=== PATIENT | male | born 1925 | race Caucasian/White ===

== ENCOUNTER 2017-04-28 23:55 | Inpatient (IN) | payer OTHER ==
[~2017-04-28] VITALS: Ht 182.9 cm; Wt 82.6 kg
--- NOTE | 2017-04-28 23:59 | ED AMS/SEIZURE/WEAK/DIZZY ---
History of Present Illness General Chief Complaint: General Adult Stated Complaint: INCREASED LETHRAGY AND DIARRHEA Source: family, old records Exam Limitations: clinical condition Vital Signs & Intake/Output Vital Signs & Intake/Output Vital Signs Date Time Temp Pulse Resp B/P B/P Pulse O2 O2 Flow FiO2 Mean Ox Delivery Rate 04/29 0432 97.4 76 20 110/80 100 Nasal 2.0L Cannula 04/29 0151 67 20 125/88 100 Nasal 2.0L Cannula 04/29 0055 96 Nasal 2.0L Cannula 04/29 0038 68 16 120/82 97 Room Air 04/29 0005 97.5 64 20 94/53 97 Room Air Allergies Coded Allergies: NO KNOWN ALLERGIES (04/29/17) Reconcile Medications No Known Home Medications Triage Nurses Notes Reviewed? yes Onset: Gradual Duration: day(s): Timing: recent history Injury Environment: home Severity: moderate HPI: 89 yo gentleman presents with weakness from home. Per his family, "He has been getting weak, not eating, not drinking. Tonight he coughed, and after that, he was not the same. He seemed sicker and was breathing harder." Past History Travel History Traveled to [place] past 21 day No Medical History Any Pertinent Medical History? none Surgical History Surgical History: none Family History Hx Contributory? No Sexual History Sexually Active No Review of Systems Review of Systems Constitutional: Reports: no symptoms. EENTM: Reports: no symptoms. Respiratory: Reports: no symptoms. Cardiovascular: Reports: no symptoms. GI: Reports: no symptoms. Genitourinary: Reports: no symptoms. Musculoskeletal: Reports: no symptoms. Skin: Reports: no symptoms. Neurological/Psychological: Reports: no symptoms. Hematologic/Endocrine: Reports: no symptoms. Immunologic/Allergic: Reports: no symptoms. All Other Systems: Reviewed and Negative Physical Exam Physical Exam General Appearance: well developed/nourished, no apparent distress Head: atraumatic, normal appearance Eyes: Bilateral: normal appearance, PERRL, EOMI. Ears, Nose, Throat: normal ENT inspection, hearing grossly normal Respiratory: normal breath sounds, chest non-tender, no respiratory distress, quiet respiration, lungs clear Cardiovascular: gallop Gastrointestinal: normal bowel sounds, soft, non-tender, no organomegaly Back: normal inspection, normal range of motion, vertebral tenderness Extremities: evidence of injury Neurologic/Psych: confused, delerious Reflexes: 1+: bicep (R), bicep (L). Skin: intact, normal color, warm/dry, cyanosis Lymphatic: adenopathy, no anterior cervical citlali Core Measures ACS in differential dx? No CVA/TIA Diagnosis: No Severe Sepsis Present: No Septic Shock Present: No Progress Differential Diagnosis: alcohol intoxication, anemia, hypoglycemia, hypoxia, intracranial Hem., intracranial mass/tumor Plan of Care: Orders Procedure Date/time Status CBC WITHOUT DIFFERENTIAL 04/30 0830 Active Nothing by Mouth 04/29 B Active TROPONIN LEVEL 04/29 0830 Active LACTIC ACID 04/29 0830 Active HEPATIC FUNCTION PANEL 04/29 0830 Active BASIC ELECTROLYTES PLUS BUN&CR 04/29 0830 Active EKG 04/29 0830 Active LACTIC ACID 04/29 0630 Active AMMONIA 04/29 0353 Active Lab Add-on Test 04/29 0341 Active LACTIC ACID 04/29 0332 Complete Lab Add-on Test 04/29 0318 Active US-LIMITED ABDOMEN 04/29 0317 Active TRC EVALUATION (GEN) 04/29 0308 Active PT Evaluate & Treat 04/29 0308 Active Pathway - chart 04/29 0308 Active House Staff 04/29 0308 Active Patient Data 04/29 0216 Active BLOOD CULTURE 04/29 0150 Active Saline Lock 04/29 0149 Active Misc Message 04/29 0149 Active ED Holding Orders 04/29 0149 Active Admit to inpatient 04/29 0149 Active Vital Signs 04/29 0149 Active Code Status 04/29 0149 Active [place], Insertion/Removal/Asses 04/29 0146 Active CULTURE,URINE 04/29 0146 Active BLOOD CULTURE 04/29 0146 Active VIT D 25 HYDROXY 04/29 0033 Active THYROID STIMULATING HORMONE 04/29 0033 Active VITAMIN B12 04/29 0033 Active LACTIC ACID 04/29 0032 Complete Intake & Output 04/29 0000 Active SWALLOW EVALUATION 04/29 UNK Active VTE Mechanical Prophylaxis 04/29 UNK Active Patient Safety Monitor 04/29 UNK Active URINALYSIS 04/28 2358 Complete TROPONIN LEVEL 04/28 2358 Active LIPASE 04/28 2358 Active HEPATIC FUNCTION PANEL 04/28 2358 Active CBC WITHOUT DIFFERENTIAL 04/28 2358 Complete BASIC METABOLIC PANEL 04/28 2358 Active AMYLASE 04/28 2358 Active EKG 04/28 2358 Active Current Medications Sig/Jamee Start time Last Medication Dose Stop Time Status Admin Heparin Sodium 5,000 UNIT Q8 04/29 0600 UNVr (Porcine) Haloperidol 0.5 MG Q12P PRN 04/29 044 AC (Haldol) Potassium Chloride 10 MEQ Q1H 04/29 0445 AC 04/29 0546 Haloperidol 0.5 MG Q12P PRN 04/29 034 AC (Haldol) Potassium Chloride 40 MEQ ONCE ONE 04/29 034 CAN (K-Dur) 04/29 0346 Sodium Chloride 1,000 ML Q13H 04/29 034 AC 04/29 (Normal Saline 0.9%) 0354 Ampicillin Sodium/ 3,000 MG Q6 04/29 0330 UNVr 04/29 Sulbactam Sodium 0354 (Unasyn) Sodium Chloride 100 ML (Normal Saline 0.9%) Sodium Chloride 1,000 ML CONTINOUS INFUSION 04/29 031 CAN (Normal Saline 0.9%) 04/29 1634 Laboratory Tests 04/29/17 0336: Lactic Acid 8.5 H 04/29/17 0040: Urinalysis LIGHT H, Urine Color YEL, Urine Clarity HAZY H, Urine pH 6.0, Ur Specific [place] 1.025, Urine Protein 100 H, Urine Ketones NEG, Urine Nitrite NEG, Urine Bilirubin NEG@ICTO, Urine Urobilinogen 2.0 H, Ur Leukocyte Esterase NEG, Ur Microscopic SEDIMENT EXAMINED, Urine RBC 25-50 H, Urine WBC RARE, Ur Epithelial Cells FEW, Urine Bacteria RARE H, Hyaline Casts 1-3 H, Urine Mucus FEW, Urine Hemoglobin LARGE H, Urine Glucose NEG 04/29/17 0033: Lactic Acid 10.5 H 04/29/17 0033: Anion Gap 26 H, Estimated GFR 48 L, BUN/Creatinine Ratio 14.3, Glucose 154 H, Calcium 8.9, Total Bilirubin 2.7 H, Direct Bilirubin 1.5 H, AST 33, ALT 33, Alkaline Phosphatase 100, Troponin I 0.06, Total Protein 7.4, Albumin 4.0, Amylase 80, Lipase 45, Vitamin B12 365, 25-OH Vitamin D Total Pending, TSH 1.590 , CBC w Diff NO MAN DIFF REQ, RBC 5.54, MCV 86.2, MCH 28.4, RDW 15.0 H, MPV 9.2 , Gran % 84.6 H, Lymphocytes % 7.5 L, Monocytes % 6.3, Eosinophils % 1.5, Basophils % 0.1, Absolute Granulocytes 7.4 H, Absolute Lymphocytes 0.7 L, Absolute Monocytes 0.6, Absolute Eosinophils 0.1, Absolute Basophils 0, PUBS MCHC 33.0 Microbiology 04/29 0235 BLOOD: Blood Culture - RECD 04/29 0225 BLOOD: Blood Culture - RECD 04/29 0040 URINE ROUT: Urine Culture - RECD Diagnostic Imaging: Viewed by Me: Radiology Read. Discussed w/RAD: Radiology Read. CXR Impression: right basilar opacity, trace, with effusion Initial ED EKG: normal axis, normal intervals, normal p-waves, normal QRS complex, normal sinus rhythm Comments: PATIENT: MARIO CAMACHO PRESENT AGE: 89 PATIENT ACCOUNT NO: [id number] : [birth year] LOCATION: [facility] ORDERING PHYSICIAN: STONE WHEELER MD SERVICE DATE: 04/29/17 EXAM TYPE: RAD - XRY-PORTABLE CHEST XRAY EXAMINATION: XR PORTABLE CHEST CLINICAL INFORMATION: Dyspnea COMPARISON: None TECHNIQUE: Portable frontal view of the chest was obtained. FINDINGS: Right-sided pacemaker lead tips overlie the right atrium and right ventricle. Lung volumes are symmetric. There is minimal haziness at the right lung base. No additional consolidation bilaterally. No evidence of pneumothorax. Trace right pleural effusion cannot be excluded. No overt pulmonary edema. The cardiac silhouette is enlarged. There are degenerative changes in the bilateral shoulders. IMPRESSION: Minimal right basilar haziness and possible trace effusion. No overt edema. Enlarged cardiac silhouette. DICTATED BY: LEONARDO NICHOLAS MD DATE/TIME DICTATED:04/29/17108 [employer] BACK TENDER:ALLY DATE/TIME TRANSCRIBED:04/29/17108 CONFIDENTIAL, DO NOT COPY WITHOUT APPROPRIATE AUTHORIZATION. <Electronically signed in Other Vendor System> SIGNED BY: LEONARDO NICHOLAS MD 04/29/17 0114 Departure Departure Disposition: STILL A PATIENT Condition: Stable Clinical Impression Primary Impression: Sepsis Secondary Impressions: Acute renal failure, Lactic acidosis, Pneumonia Referrals: RAMAN SANABRIA,MICHAEL Mckeon (PCP/Family) Departure Forms: Customer Survey General Discharge Information Prescriptions: Current Visit Scripts No Known Home Medications Comments 04/29/17, 0:30. Discussed with son who is POA. Pt is dnr/dni. Admission Note Spoke With: CHELI SARAH MD Documentation of Exam: Documentation of any treatments & extenuating circumstances including Concerns Regarding Discharge (functional status, medication knowledge or non-compliance, living conditions, etc.) that warrant an admission rather than observation: pt in renal failure, with lactic acidosis, merits iv fluids. Pt also in sepsis... merits iv abx.
--- NOTE | 2017-04-29 00:05 | NUR ---
TRIAGE: DANIELE FROM HOME W/ FAMILY, FAMILY REPORTING SUDDEN ONSET DIARRHEA TONIGHT W/ INC AMS AND INC LETHARGY SINCE APPROX 8PM. PATIENT HX DEMENTIA W/ PACER TO RCW. PATIENT FAMILY REPORTS "NOT ACTING HIMSELF. IF HE IS DYING, WE WANT HIM TO PASS AT HOME." PATIENT IS ON NO HOME MEDICATIONS BASELINE. PER EMS, ON EMS ARRIVAL, HR:30-60 PACED W/ NO BILATERAL RADIAL PULSES AND BP: 70/40. PATIENT VSS ON ARRIVAL, BILATERAL RADIAL PULSES PRESENT THOUGH WEAK. PREHOSP FINGERSTICK:181. PREHOSP IV EST #18 LEFT FOREARM.
[2017-04-29 00:46] LABS: ABSOLUTE BASOPHIL COUNT 0 /CUMM (0.0-0.2); ABSOLUTE EOSINOPHIL COUNT 0.1 /CUMM (0.0-0.7); ABSOLUTE GRANULOCYTE CT 7.4 /CUMM (1.4-6.5); ABSOLUTE LYMPH COUNT 0.7 /CUMM (1.2-3.4); ABSOLUTE MONOCYTE COUNT 0.6 /CUMM (0.10-0.60); BASOPHIL % 0.1 % (0.0-2.0); EOSINOPHIL % 1.5 % (0-5); GRANULOCYTE % 84.6 % (42.2-75.2); HEMATOCRIT 47.7 % (42-52); MEAN CORPUSCULAR HGB 28.4 PG (27.0-31.0); MEAN CORPUSCULAR VOLUME 86.2 FL (80.0-94.0); MEAN PLATELET VOLUME 9.2 FL (7.4-10.4); PLATELET COUNT 152 /CUMM (130-400); RED BLOOD CELL CT 5.54 /CUMM (4.70-6.10); WHITE BLOOD CELL COUNT 8.8 /CUMM (4.8-10.8)
--- NOTE | 2017-04-29 00:52 | NUR ---
18G IV ESTABLISHED AND NS IVF RUNNING PER ORDER. BLOOD DRAWN AND SENT (BLUE, SST X2, LAV, HANSON, PINK). PREHOSP #18 TO LW INTACT. PT APPEARS LETHARGIC, ABLE TO FOLLOW SOME COMMANDS. AGITATED AND RESTLESS AT TIMES. OBTUNDED AND CATATONIC AT TIMES. ABLE TO REDIRECT BEHAVIOR WITH EMOTIONAL SUPPORT PROVIDED. PT CLEANED OF VERY SOFT BROWN STOOL, HUSSAIN CARE PROVIDED AND BARRIER CREAM APPLIED. COCCYX AREA REDDENED, BLANCHABLE. SKIN INTACT AT THIS TIME. PT WITH FREQUENT URGE TO VOID. 18FR CATH INSERTED WITH 100CC DARK KAYLA URINE OUTPUT. TRIO SENT TO LAB. SKIN APPEARS PALE WITH CRUSTED PAPILAR RASH TO ABDOMEN. FEET SWOLLEN BILATERALLY, TOES APPEAR PURPLE. UNABLE TO PALPATE PULSES. ELEVATED FOR COMFORT AND TO REDUCE SWELLING. PT IS PACED ON CM (RCW PACEMAKER/DEFIB) RATE 60'S WITH FREQUENT PVC'S. DENIES CP OR SOB. RESPIRATIONS SHALLOW, DEPRESSED RATE 10-14 AT REST, 18 WHEN INTERACTING WITH THIS RN. O2 SAT 97% BUT PLACED ON 2LNC SUPPLIMENTAL O2 WHILE AT REST. LIGHTS DIMMED FOR COMFORT. FAMILY AT BEDSIDE. PORTABLE CXR IN PROGRESS
--- NOTE | 2017-04-29 00:56 | NUR ---
CRITICAL TEST RESULTS [id number] MARIO CAMACHO 89 M TESTS AND RESULTS: LACTIC ACID 10.5 Results received and read back by: JANETH MARION Results received date and time: 04/29/17 0056 The following provider was notified of the results, and read the results back: Notified date and time: 04/29/17 at 0056
--- NOTE | 2017-04-29 01:14 | RADIOLOGY REPORT ---
EXAMINATION: XR PORTABLE CHEST CLINICAL INFORMATION: Dyspnea COMPARISON: None TECHNIQUE: Portable frontal view of the chest was obtained. FINDINGS: Right-sided pacemaker lead tips overlie the right atrium and right ventricle. Lung volumes are symmetric. There is minimal haziness at the right lung base. No additional consolidation bilaterally. No evidence of pneumothorax. Trace right pleural effusion cannot be excluded. No overt pulmonary edema. The cardiac silhouette is enlarged. There are degenerative changes in the bilateral shoulders. IMPRESSION: Minimal right basilar haziness and possible trace effusion. No overt edema. Enlarged cardiac silhouette.
--- NOTE | 2017-04-29 01:52 | NUR ---
PATIENT NOTED W/ JUNKY COUGH, FAMILY REPORTING TO RN, "HE'S GETTING NERVOUS WHEN HE COUGHS, ALMOST LIKE HE'S CHOKING." VSS. PATIENT REORIENTED TO KEEP NASAL CANNULA IN PLACE, FAMILY CONTINUES TO REORIENT PATIENT, PROVIDING EMOTIONAL SUPPORT. PATIENT TURNED AND REPOSITIONED FOR COMFORT.
--- NOTE | 2017-04-29 02:14 | NUR ---
BLOOD CULTURES IN PROGRESS.
--- NOTE | 2017-04-29 02:58 | History & Physical ---
KAIDEN SANABRIA,[facility] [place] 04/29/17 0257: General Information and HPI MD Statement: I have seen and personally examined MARIO CAMACHO and documented this H&P. The patient is a 89 year old M who presented with a patient stated chief complaint of altered mental status. Source of Information: family, old records Exam Limitations: unable to give history, patient's age, clinical condition, confusion, dementia History of Present Illness: Mr. Camacho is a 89 y/o M with PMHx of sick sinus syndrome s/p pacemaker, macular degeneration and dementia who presents with acute onset of altered mental status and respiratory distress. Patient is confused and unable to give any history. History is provided by patient's pdhoyfgw-im-sjt at bedside. Patient was in his usual state of health up until around 8 PM, approximately two hours after dinner , when he went into a coughing fit while sitting up in his chair. Following the episode, coughing persisted. According to patient's granddaughter it was almost as if patient was vomiting during these episodes. He was also noted to have labored breathing. Patient has dementia at baseline but following the episode he was much more confused than usual and did not even remember his own son. Patient 's bsfyhlls-ww-yig called EMS. While waiting for EMS, she noted that patient's pulse was barely palpable. He also had episodes during which he was almost apneic and appeared to stop breathing. Upon the arrival of EMS, patient was found to have heart rate in the 30-60s and blood pressure of 70/40. Bilateral radial pulses were not palpable. On arrival to the ED, vital signs were stable and bilateral radial pulses were present, although week. Patient was very high functioning up until 4-5 months ago. He was living alone, independent in his ADLs and iADLs and very involved in his community. Since 4-5 months ago, his mental and performance status has been gradually declining. This initially started as inability to recognize family members and later progressed such that patient stopped driving and required a walker to ambulate. Initially his rtuwwtam-yn-xbx was taking care of him but when he continued to decline further and became incontinent, they hired a 24-hour home health aide. Currently patient is able to feed himself, but otherwise dependent in all other ADLs and iADLs. He has also had some personality changes during this time and has become demanding and verbally abusive. According to patient's nrybyyvx-tk-bol, patient displays sundowning. Patient does not have any significant medical history other than pacemaker placement for sick sinus syndrome, macular degeneration and right index finger injury requiring amputation. He follows with his PCP Dr. Enrique Mena but does not take any medications. Allergies/Medications Allergies: Coded Allergies: NO KNOWN ALLERGIES (04/29/17) Home Med list No Known Home Medications Past History Travel History Traveled to [place] past 21 day No Medical History Neurological: dementia EENT: cataracts, macular degeneration Cardiovascular: sick sinus syndrome Respiratory: NONE Gastrointestinal: NONE Hepatic: NONE Renal: NONE Musculoskeletal: right index finger injury Psychiatric: NONE Endocrine: NONE Blood Disorders: NONE Cancer(s): NONE OPERATING ENGINEER APPRENTICE/Reproductive: NONE Surgical History Surgical History: right index finger amputation, bilateral eye phacoemulsification and lens implantation Past Family/Social History Psychosocial History Where do you live? Home Who Do You Live With? self Services at Home: Home Health Aide Primary Language: Telugu Functional Ability ADLs Independent: eating. Needs Assist: dressing, toileting, bathing. Ambulation: walker IADLs Needs Assist: shopping, housework, finances, food prep, telephone, transportation, medication admin. Employment History Employment Retired Profession/Employer [employer] Review of Systems Review of Systems Constitutional: Reports: no symptoms. EENTM: Reports: no symptoms. Cardiovascular: Reports: no symptoms. Respiratory: Reports: cough, short of breath. GI: Reports: no symptoms. Genitourinary: Reports: no symptoms. Musculoskeletal: Reports: no symptoms. Skin: Reports: no symptoms. Neurological/Psychological: Reports: confusion, dementia. Hematologic/Endocrine: Reports: no symptoms. Immunologic/Allergic: Reports: no symptoms. All Other Systems: Reviewed and Negative Exam & Diagnostic Data Last 24 Hrs of Vital Signs/I&O Vital Signs Date Time Temp Pulse Resp B/P B/P Pulse O2 O2 Flow FiO2 Mean Ox Delivery Rate 04/29 0151 67 20 125/88 100 Nasal 2.0L Cannula 04/29 0055 96 Nasal 2.0L Cannula 04/29 0038 68 16 120/82 97 Room Air 04/29 0005 97.5 64 20 94/53 97 Room Air Intake & Output 04/29 0800 04/29 0000 04/28 1600 Intake Total 1000 Output Total 100 Balance 900 Intake, IV 1000 Output, Urine 100 Patient 82.554 kg Weight Physical Exam General Appearance Alert, No Acute Distress, Awake, Confused, Folows Commands Skin No Rashes Skin Temp/Moisture Exam: Warm/Dry Sepsis Skin Exam (color): Jaundiced HEENT Atraumatic, Mucous Membr. moist/pink Neck Supple Cardiovascular Normal S1, Normal S2 Lungs Clear to Auscultation Abdomen Soft, No Tenderness, Positive Bowel Sounds Extremities Bilateral Lower Extremities with 2+ Pitting Edema Last 24 Hrs of Labs/[place]: Laboratory Tests 04/29/17 0336: Lactic Acid 8.5 H 04/29/17 0040: Urinalysis LIGHT H, Urine Color YEL, Urine Clarity HAZY H, Urine pH 6.0, Ur Specific [place] 1.025, Urine Protein 100 H, Urine Ketones NEG, Urine Nitrite NEG, Urine Bilirubin NEG@ICTO, Urine Urobilinogen 2.0 H, Ur Leukocyte Esterase NEG, Ur Microscopic SEDIMENT EXAMINED, Urine RBC 25-50 H, Urine WBC RARE, Ur Epithelial Cells FEW, Urine Bacteria RARE H, Hyaline Casts 1-3 H, Urine Mucus FEW, Urine Hemoglobin LARGE H, Urine Glucose NEG 04/29/17 0033: Lactic Acid 10.5 H 04/29/17 0033: Anion Gap 26 H, Estimated GFR 48 L, BUN/Creatinine Ratio 14.3, Glucose 154 H, Calcium 8.9, Total Bilirubin 2.7 H, Direct Bilirubin 1.5 H, AST 33, ALT 33, Alkaline Phosphatase 100, Troponin I 0.06, Total Protein 7.4, Albumin 4.0, Amylase 80, Lipase 45, Vitamin B12 Pending, 25-OH Vitamin D Total Pending, TSH Pending, CBC w Diff NO MAN DIFF REQ, RBC 5.54, MCV 86.2, MCH 28.4, RDW 15.0 H, MPV 9.2, Gran % 84.6 H, Lymphocytes % 7.5 L, Monocytes % 6.3, Eosinophils % 1.5, Basophils % 0.1, Absolute Granulocytes 7.4 H, Absolute Lymphocytes 0.7 L, Absolute Monocytes 0.6, Absolute Eosinophils 0.1, Absolute Basophils 0, PUBS MCHC 33.0 Microbiology 04/29 235 BLOOD: Blood Culture - RECD 04/29 225 BLOOD: Blood Culture - RECD 04/29 40 URINE ROUT: Urine Culture - RECD Diagnostic Data EKG Results Paced rhythm HR 71 QTc 450 CXR Results Minimal right basilar haziness and possible trace effusion. No overt edema. Enlarged cardiac silhouette. Assessment/Plan Assessment: Mr. Camacho is a 89 y/o M with PMHx of sick sinus syndrome s/p pacemaker, macular degeneration and dementia who presents with acute onset of altered mental status and respiratory distress. #Altered mental status: Underlying reason for patient's altered mental status is unclear with most likely etiologies including aspiration pneumonia given onset of symptoms of choking and respiratory distress, though patient is afebrile and without leukocytosis and CXR is without focal consolidation, and worsening of his progressive dementia, though this would present gradually as opposed to an acute sharp decline like the current presentation. Other etiologies that should be considered are hepatic encephalopathy given isolated hyperbilirubinemia suspicious of liver disease, vitamin B12 or vitamin D deficiency and hypothyroidism. S/p 1 dose of ceftriaxone and 1 L bolus of NS x2 in the ED. Currently satting well on 2 L NC. * Admit to General Medicine. * Start Unasyn 1.5 g IV Q6H. * Check BCx. * Keep patient NPO. * Swallow evaluation in the AM. * Check vitamin B12, vitamin D and TSH. * Check ammonia to rule out hepatic encephalopathy. * PT evaluation. * 1:1 sitter. * Haldol 0.5 mg IM BID PRN for agitation. #Lactic acidosis: Lactic acid markedly elevated to 10.5 on admission. Etiology is unclear but is most likely multifactorial including sepsis secondary to aspiration pneumonia and inability to clear lactic acid secondary to underlying suspected liver disease. * Trend lactic acid. * Continue IV hydration. #Hyperbilirubinemia: Mixed conjugated and unconjugated hyperbilirubinemia with total bilirubin of 2.7 and direct bilirubin of 1.5. Isolated hyperbilirubinemia with normal transaminases, alkaline phosphatase, amylase and lipase. Of unclear etiology. * Check RUQ US to rule out hepatic or biliary pathology. * Repeat LFTs in the AM. #Renal insufficiency: Creatinine 1.4 on admission. Unclear whether this represents APRIL or CKD since baseline creatinine is unknown but previous creatinine in 2012 had been normal. * Avoid nephrotoxic medications. * Monitor BMP in the AM. * Gentle hydration with NS @ 75 cc/hr. #Sick sinus syndrome: S/p pacemaker placement more than 10 years ago. Troponin on admission negative. EKG with paced rhythm and no ST-T wave changes. * Cardiology consult to be placed in the AM. Appreciate their recs. * Consider interrogating the pacemaker. * Repeat troponin and EKG. #Hypokalemia: K 3.3 on admission. * Administer KCl 10 mEq x2 as patient is too agitated to take PO. Diet: NPO DVT PPx: HSQ and ALPs CODE: DNR/DNI As Ranked By This Provider Problem List: 1. Altered mental status 2. Hyperbilirubinemia 3. Renal insufficiency 4. Aspiration pneumonia 5. Lactic acidosis 6. High anion gap metabolic acidosis 7. Sick sinus syndrome 8. Pacemaker Core Measures/Miscellaneous Acute Coronary Syndrome ACS Diagnosis: No Cerebrovascular Accident CVA/TIA Diagnosis: No Congestive Heart Failure CHF Diagnosis: No VTE (View Protocol) VTE Risk Factors: Acute medical illness, Age > 40, CHF or Resp failure No [facility] VTE prophylaxis d/t: No contraindications No VTE Pharm Prophylaxis d/t: No contraindications VTE Diagnosis: No VTE Type: NONE VTE Confirmed by (Test): NONE Sepsis (View Protocol) Severe Sepsis Present: No Septic Shock Septic Shock Present: No Miscellaneous Documentation Attending Case Discussed With: CHELI SARAH MD Primary Care Physician: RAMAN SANABRIA,ENRIQUE Mckeon Patient sees these Specialists Human Services Supervisor Sanjeev Tyler DPM Level of Patient Care: General Medicine LEONEL PENA 04/29/17 0345: Resident Review Statement Resident Statement: examined this patient, discussed with underwriting internship, agreed with underwriting internship, reviewed images, amended to note Other Findings: This is an 89 years old gentleman who has been fairly healthy not on any medication with past medical history of pacemaker placement more than 10 years ago reason for which is not known by the care provider probably done at [facility] or [facility]. Patient follows with only primary care physician Enrique Mena MD. He has history of dementia that has been getting worse in the past 3 months necessitating the family getting a maritime guard care provider. Patient was brought in by ambulance today after noting that starting from around 8 PM the patient he was coughing profusely followed by a period of transient unresponsiveness and almost no pulses as reported by the disk grinder who is the haojfpke-xx-wdd. There is also reports that using home BP machine the blood pressure systolic was about 70. Prior to this the patient was at his baseline has been eating and finishing his meals well without any problems. At the time of the coughing spells the patient was heaving did not cough and had a gurgling sound like blowing water from the lungs. Vitals on arrival showed afebrile 97.3 heart rate of 64 blood pressure 94/53 and improved with fluid resuscitation to systolic of 120, respiration of 20 and saturating 97% on room air Physical examination: Patient lying comfortably on the bed not in any acute distress can respond appropriately but appears lethargic and will not respond to orientation questions. Most of the history was narrated by the mgakunoc-yg-atl who lives in the same place with the patient. HEENT: No distended neck vessels dry mucous membranes Chest: Transmitted sounds bilaterally was appreciated Heart: Regular normal S1-S2 no murmurs Abdomen: No contour moving with respiration, no tenderness Extremities: Bilateral pitting edema +2 and no cyanosis or clubbing Assessment and plan 89 years old who has been fairly healthy not on any medication presenting with acute onset of coughing spell followed by a period of transient unresponsiveness and increased confusion. The patient has normal white count and no x-ray evidence of pneumonia. This patient might have aspirated given his dementia which has been progressing and hence the acute cough spell, given the acuteness of the aspiration the patient has not developed neurological changes. Aspiration pneumonia Lactic acidosis Acute kidney injury Hypokalemia Anionic gap acidosis Hyperbilirubinemia Dementia Admit the patient to general medicine floor Start the patient on IV Unasyn 3 g every 6 Total respiratory care with frequent suctioning Patient has received 2 L of normal saline continue with maintenance fluid to 75 mL per Repeat BEP a.m., continue to trend lactic acid One-to-one sitter and Haldol 0.5 mg twice a day when necessary for agitation Right upper quadrant ultrasound Continue to trend troponins and EKG every 8 hours Will admit to admission and blood samples ammonia level of B12 vitamin D and TSH Patient will benefit from teacher elementary school review and possible interrogation of the pacemaker PT evaluation Patient is nothing by mouth pending swallow evaluation CODE STATUS is DNI DNR Heparin for DVT prophylaxis KEARALUZ MARINABRI 04/29/17 0526: Attending MD Review Statement Attending Statement Attending MD Statement: examined this patient, discuss w/resident/PA/INSURANCE ADVISOR, agreed w/resident/PA/INSURANCE ADVISOR, discussed with family, reviewed EMR data (avail), reviewed images, amended to note Attending Assessment/Plan: CC: Sudden onset severe shortness of breath, altered mental status PMH: Cardiac arrhythmiapacemaker S/P pacemaker, dementia : Not on any medications Patient was brought in ER through EMS after an episode of severe coughing followed by almost apnea at home. History is provided by patient's daughter-in- law who suggests that she has been noticing decline in patient's mental condition since last 4-5 months, he being more forgetful, BMP are all changes, verbally aggressive, agitation. Previously oulvfzax-wp-xje was swollen care provider but then as his behavioral changes progressed they have 24 hour caregivers. According to caregiver patient had dinner around 6 PM and was on his recliner when he started to cough, cough was persistent and getting worse almost like dry heaves without vomiting. Caregiver called ehdqnyxg-db-zto and son, by that time patient was not recognizing them. Patient was very confused. Then his breathing was worse, almost stopped breathing. When caregiver tried to take blood pressure it was non-recordable, and ukcpemck-ax-hyo tried to take the pulse which she could not. When EMS arrived his heart rate was in 30s to 60s, blood pressure 70/40. When arriving in ER he had bilateral radial pulses, weak, fingerstick 181, blood pressure 98/53. Patient appears very agitated and delirious. Vitals: Afebrile, pulse in 60s, RR 20, blood pressure improved to 120/82, saturating well on 2 L nasal cannula. On examination: Not oriented, agitated, trying to get off the bed, trying to pull the Valdivia catheter, not cooperative, no acute distress, neck supple, JVD normal, mucosa dry, moving all extremities, with complete neurological examination could not be done, cranial nerves apparently intact, no dependent edema, no obvious skin rashes or inflammation CVS: S1-S2, RRR. RS: Coarse breathing sounds right worse than left, Abdomen: Soft, NT, ND, bowel sounds present. Labs: CBC unremarkable, potassium 3.3, bicarbonate 18, anion gap 26, BUN 20, creatinine 1.4, lactate 10.5, total bilirubin 2.7, direct bilirubin 1.5, AST 33, ALT 33, alkaline phosphatase 100, troponin 0.06 UA positive for protein, urobilinogen, RBC 50, rare bacteria CXR: Minimal right basilar haziness and possible trace effusion. No overt edema. Enlarged cardiac silhouette. EKG: Paced rhythm A and P 89-year-old male with past medical history significant for dementia with progressive decline over few months presented in ER for acute worsening of respiratory symptoms. Patient had persistent progressive cough at home followed by labored breathing and confusion. Patient was almost apneic for some time and had low blood pressure and pulse was not palpable. Upon arrival in ER is radial pulses were palpable but weak, blood pressure low normal side, improved with hydration. Patient appears severely agitated, no significant respiratory distress, saturating well on room air, coarse breathing sound on right side. BMP is significant for metabolic acidosis with high anion gap and lactic acidosis is 10.5. Patient may have had this changes secondary to hypoxia, hypotension happened at home. Patient also has elevated bilirubin of unclear etiology. Chest x-ray shows right-sided infiltrate, may have aspirated at home. Exact etiology of this acute decompensation is unclear probably choking, need to evaluate pacemaker as well. + Acute respiratory distress: Resolved + Aspiration pneumonia + Anion gap metabolic acidosis secondary to lactic acidosis + Elevated creatinine + Hyperbilirubinemia + Dementia with sundowning - Admit to general medicine floor - Continue gentle hydration - Replace potassium - Trend lactate - Blood cultures - IV Unasyn - Right upper quadrant ultrasound - When necessary Haldol if required - One-on-one sitter - Trend EKG troponin - Consult cardiology - ? Interrogation of pacemaker - Check B12 vitamin D and TSH - DVT prophylaxis with heparin - Try to discontinue Valdivia as soon as possible - Adequate pain control I had a detailed discussion with patient's prognosis and condition with patient' s wrtfvkdq-ff-kwe, if patient is not appropriately responding to current treatment or exact cause of acute deterioration not found, may consider palliative care. According to bbtbxbbz-pv-pog patient would not want to stay in hospital for long.
--- NOTE | 2017-04-29 03:38 | NUR ---
PATIENT CHANGED INTO HOSPITAL BED FROM ER STRETCHER, REPOSITIONED FOR COMFORT. PATIENT NOTED TO BE INCREASINGLY AGITATED, ATTEMPTING TO GET OUT OF BED. REORIENTED BY STAFF AND PATIENT'S FAMILY. PATIENT FAMILY REMAINS W/ PATIENT. PATIENT NOTED TO HAVE BEEN INCONTINENT OF SMALL AMOUNT LIQUID BM, CLEANED AND HUSSAIN CARE PROVIDED. RENEE REMAINS IN PLACE, APPROX 300ML DARK AKYLA URINE OUTPUT EMPTIED FROM DRAINAGE BAG. IV SITES COVERED W/ COBAND FOR PROTECTION. REPEAT LACTIC ACID OBTAINED AND SENT TO LAB. MD SARAH AT BEDSIDE.
--- NOTE | 2017-04-29 03:55 | NUR ---
UNASYN 3G INFUSING AT 200ML/HR PER EMAR. TOLERATING WELL. (LITER 2) NS BOLUS CONTINUES TO INFUSE W/O DIFFICULTY. (LITER 3) NS INFUSING AT 75ML/HR PER EMAR. TOLERATING WELL. PATIENT NOW SLEEPING, REGULAR RESPIRATIONS NOTED. FAMILY RESTING AT BEDSIDE IN RECLINER AT THIS TIME. LIGHTS IN ROOM DIMMED. REMAINS IN VIEW OF NURSES STATION.
--- NOTE | 2017-04-29 03:58 | NUR ---
CRITICAL TEST RESULTS [id number] MARIO CAMACHO 89 M TESTS AND RESULTS: LACTIC ACID 8.5 Results received and read back by: JANETH MARION Results received date and time: 04/29/17 0358 The following provider was notified of the results, and read the results back: HOUSE STAFF PAGED (BEEPER [id number]) Notified date and time: 04/29/17 at 0358
--- NOTE | 2017-04-29 03:59 | NUR ---
MD AWARE OF LACTIC ACID.
--- NOTE | 2017-04-29 04:16 | NUR ---
PATIENT NOW AWAKE, ATTEMPTING TO PULL OUT IV'S AND RENEE CATH. REORIENTED BY THIS RN AND FAMILY. NO SITTERS AVALIABLE TO SIT W/ PATIENT, ER MST SITTING W/ PATIENT AT THIS TIME. PATIENT IV SITES REMAIN COVERED FOR PROTECTION. PATIENT UNABLE TO SWALLOW PILLS PER FAMILY, PATIENT REFUSING TO TAKE PO K-DUR AND PO HALDOL (PER PRN ORDER FOR AGITATION). HOUSE STAFF PAGED.
--- NOTE | 2017-04-29 05:27 | Admission Certification ---
Admission Certification Certification Statement - As attending physician, I certify that at the time of - admission, based on clinical presentation, severity of - symptoms, need for further diagnostic testing and - therapeutic interventions, and risk of adverse outcomes - without in-hospital treatment, in my clinical assessment, - this patient requires an acute hospital stay for a minimum - of two nights or longer. I have also considered psychsocial - factors such as support system, advanced age, financial - issues, cognitive issues, and failed out-patient treatments, - past re-admission history, safety of patient, and lack of - compliance as applicable. Specific rationale supporting this admission is: Severe lactic acidosis, dementia with delirium
--- NOTE | 2017-04-29 06:03 | NUR ---
PATIENT NOTED TO BE ATTEMPTING TO GET OUT OF BED, AGITATED, INCREASINGLY MORE DIFFICULT TO CONSOLE AND VERBALLY DEESCALATE. PATIENT FAMILY REMAINS AT BEDSIDE W/ LIZZIE RN, MARY ESPITIA AND NINO DANIELS (MST SITTING W/ PATIENT). PATIENT NOTED TO HAVE REMOVED GOWN, ALL TELE LEADS AND NASAL CANNULA. PATIENT CHANGED INTO SCRUB TOP FOR COMFORT/ SAFETY. PATIENT IV SITES REMAIN COVERED. KCL 10MEQ INFUSING AT 100ML/HR PER EMAR. TOLERATING WELL. ALL IV TUBING COVERED FOR PATIENT SAFETY. UNABLE TO APPLY ALPS D/T PATIENT CONFUSION AND MULTIPLE ATEMPTS TO REMOVE. ATTEMPTS TO PLACE ALPS ON PATIENT MADE PATIENT INCREASINGLY AGITATED. PATIENT MEDICATED W/ SC HEPARIN PER EMAR. TOLERATED WELL. PATIENT MEDICATED W/ HALDOL IM PER EMAR. TOLERATED WELL.
--- NOTE | 2017-04-29 06:15 | NUR ---
PATIENT CONTINUES TO BE REORIENTED AND VERBALLY DEESCALATED BY NINO DANIELS AND FAMILY, PATIENT REORIENTED TO ER MULTIPLE TIMES. EMOTIONAL SUPPORT PROVIDED.
--- NOTE | 2017-04-29 06:23 | NUR ---
UNABLE TO OBTAIN AM BLOODWORK D/T PATIENT CURRENT AGITATION. LABS ORDERED FOR 0630 AND 0830 THIS AM. SPOKE W/ MD RICHEY (BEEPER 108), PER MD "WE CAN DRAW ALL OF THE LABS AT 0730 INSTEAD OF 0630 AND AGAIN AT 0830."
--- NOTE | 2017-04-29 06:54 | NUR ---
IPOC INITIATED AND UTD AT THIS TIME.
--- NOTE | 2017-04-29 07:02 | NUR ---
FIRST KCL 10MEQ COMPLETE. SECOND 10MEQ KCL INITIATED PER EMAR. TOLERATING WELL. SITTER REMAINS W/ PATIENT D/T CONFUSION AND CONTINUED ATTEMPTS TO AMBULATE OUT OF ED. FAMILY OFFERING EMOTIONAL SUPPORT AND REORIENTING PATIENT TO ER.
--- NOTE | 2017-04-29 07:04 | NUR ---
ALPS APPLIED AT THIS TIME D/T PATIENT COOPERATIVE W/ ALPS MONITOR. WILL CONTINUE TO MONITOR.
--- NOTE | 2017-04-29 08:00 | NUR ---
ASSUMED CARE OF PT AT THIS TIME WHO IS AWAKE AND CONFUSED AT THIS TIME, BASELINE PER FAMILY MEMBER WHO HAS BEEN AT BEDSIDE. PT CONTINUES TO PULL AT IV'S - COBAN REMOVED FROM LAC SITE AND SOCK PLACED OVER SITE WITH GOOD EFFECT AT THIS TIME. ALPS REMAINS IN PLACE. DAUGHTER AT BEDSIDE - VERY HELPFUL WITH CARE; PT TURNED AND REPOSITIONED. BED SHEETS CHANGED AND HUSSAIN CARE APPLIED. RENEE CONTINUES TO DRAIN DARK URINE, 300 ML EMPTIED. DAUGHTER STATES PT HAS BEEN AWAKE ALL NIGHT AND SHE WOULD LIKE TO ALLOW PT TO TRY TO REST. FLUIDS INFUSING PER MAR. US COMPLETED HOUSE STAFF AT BEDSIDE
--- NOTE | 2017-04-29 08:50 | NUR ---
CRITICAL TEST RESULTS [id number] MARIO CAMACHO 89 M TESTS AND RESULTS: LACTIC ACID 5.5 Results received and read back by: ZARIA RODAS Results received date and time: 04/29/17 0850 The following provider was notified of the results, and read the results back: HOUSE STAFF Notified date and time: 04/29/17 at 0850
--- NOTE | 2017-04-29 09:07 | NUR ---
PT ASSIGNED TO 224-01
--- NOTE | 2017-04-29 09:27 | NUR ---
PER KATHY LORENZO, UPGRADED TO TELE AT THIS TIME
[2017-04-29 09:31] VITALS: BP 128/88
--- NOTE | 2017-04-29 09:59 | ULTRASOUND REPORT ---
EXAMINATION: US ABDOMEN LIMITED CLINICAL INFORMATION: Isolated hyperbilirubinemia. No history of liver or gallbladder disease. Evaluate for liver/biliary tract process. COMPARISON: None TECHNIQUE: Real-time imaging of the right upper quadrant abdominal viscera. FINDINGS: PANCREAS: Incompletely visualized with the pancreatic head due to shadowing by overlying bowel gas. There is a hypoechoic 1.5 x 1.4 x 2.9 cm avascular thin-walled cystic mass in the pancreatic body. No wall thickening or papillary projections are noted. Remainder of the pancreas unremarkable. LIVER: Normal. The liver demonstrates normal size, contour and echogenicity. No focal lesion or intrahepatic biliary duct dilatation. GALLBLADDER: Multiple echogenic shadowing foci are seen layering within the gallbladder, consistent with gallstones. Diffuse gallbladder wall thickening is suggested along the medial margin, measuring up to 0.7 cm in diameter. The gallbladder is otherwise unremarkable. No gallbladder wall thickening or pericholecystic fluid. No sonographic Kahn's sign. COMMON BILE DUCT: Normal in caliber measuring 0.3 cm in diameter. RIGHT KIDNEY: Normal. No hydronephrosis. No renal calculi or focal parenchymal lesions. The kidney measures 11.0 cm in maximum dimension. FREE FLUID: None. IMPRESSION: 1. Large 1.5 x 1.4 x 2.9 cm thin-walled and avascular cystic mass in the pancreatic body. This may represent an incidental pancreatic cyst or pseudocyst. However, cystic neoplasm must be considered in the differential. Further assessment with MRI scan of the abdomen with and without contrast and MRCP is recommended. 2. Cholelithiasis with eccentric gallbladder wall thickening, suggesting inflammation. No sonographic Kahn's sign or pericholecystic fluid is seen to suggest acute component and findings may be long-standing. Close clinical correlation is requested. 3. Otherwise unremarkable right upper quadrant ultrasound.
--- NOTE | 2017-04-29 10:29 | NUR ---
SWALLOW EVAL IN PROGRESS
--- NOTE | 2017-04-29 10:45 | NUR ---
PER SPEECH THERAPY - PT IS NPO WITH ABSOUTELY NO EXCEPTIONS. KATHY PAGED AND WILL COME TO ED TO SPEAK WITH FAMILY
--- NOTE | 2017-04-29 11:00 | NUR ---
REPORT GIVEN TO NUPUR ANDREA AND NATALIE
--- NOTE | 2017-04-29 11:14 | NUR ---
PT SEEN AT BEDSIDE. HOUSE STAFF IN ROOM
--- NOTE | 2017-04-29 11:45 | NUR ---
PT RESTLESS IN BED, LEGS OVER RAIL. PT ASSISTED WITH REPOSITION, TURNED ONTO LEFT SIDE. RESTING COMFORTABLY
--- NOTE | 2017-04-29 12:13 | NUR ---
PT IS GOING TO 189-2
--- NOTE | 2017-04-29 12:30 | NUR ---
PT INCREASINGLY RESTLESS AND AGITATED, PULLING ON LINES. 1:1 AT BEDSIDE WITH PATIENT, DIFFICULT TO REDIRECT.
--- NOTE | 2017-04-29 12:41 | NUR ---
PHYSICAL THERAPY: RECIEVED CONSULT ORDERS, REVIEWED CHART, SPOKE WITH RN. FAMILY PRESENT IN ROOM, Pt RESTING COMFORTABLY. PER [id number] AND SON, Pt HAS 24 HOUR HOME HEALTH SERVICES, REQUIRES ASSIST X1-2 FOR ALL ADLs, IADLs, AND FEEDING. Pt IS INCONTINENT AND UNABLE TO USE BATHROOM, LIMITED MOBILITY WITH USE OF RW. Pt HAS DEMENTIA AT BASELINE AND HAS DIFFICULTY FOLLOWING DIRECTIONS OR COMMANDS. FAMILY STATES THAT THEY HAVE TRIALED HOME P.T. AND STR IN THE PAST WITH LIMITED GAINS, FEELS THAT P.T. IS NOT APPROPRAITE AT THIS TIME. ASKED P.T. TO ALLOW Pt TO REST HE DID NOT SLEEP THROUGH THE NIGHT. SPOKE W/ CASE MANAGEMENT REGARDING CASE; P.T. WILL NOT FOLLOW.
--- NOTE | 2017-04-29 12:46 | NUR ---
REPORT TO NUPUR JEAN ON 1N
--- NOTE | 2017-04-29 14:17 | PN- Att Addend ---
Attending Addendum Attending Brief Note Patient seen and examined, he had received Haldol therefore was sleepy. He was not able to communicate anything. Patient's family was sitting at bedside and we had lengthy discussion with them. Vital Signs Date Time Temp Pulse Resp B/P B/P Pulse O2 O2 Flow FiO2 Mean Ox Delivery Rate 04/29 1357 98.9 63 20 150/76 96 Room Air 04/29 1245 99.6 72 22 156/74 99 Room Air 04/29 1103 99.2 72 20 154/72 99 Room Air 04/29 0931 98.2 81 18 128/88 99 Nasal Cannula 04/29 0819 98.2 81 18 128/88 99 Nasal 3.0L Cannula 04/29 0646 100 Nasal 2.0L Cannula 04/29 0616 98.0 70 20 127/89 100 Nasal 2.0L Cannula 04/29 0432 97.4 76 20 110/80 100 Nasal 2.0L Cannula 04/29 0151 67 20 125/88 100 Nasal 2.0L Cannula 04/29 0055 96 Nasal 2.0L Cannula 04/29 0038 68 16 120/82 97 Room Air 04/29 0005 97.5 64 20 94/53 97 Room Air on exam; sleepy, had received haldol. cv; s1,s2, rrr resp; clear. abd; soft, nt, bs+ ext; no edema. skin; + maculopapular rash all over chest. Laboratory Tests 04/29 04/29 04/29 0740 0740 0336 Chemistry Sodium (137 - 145 mmol/L) 145 Potassium (3.5 - 5.1 mmol/L) 3.9 Chloride (98 - 107 mmol/L) 105 Carbon Dioxide (22 - 30 mmol/L) 21 L Anion Gap (5 - 16) 19 H BUN (9 - 20 mg/dL) 22 H Creatinine (0.7 - 1.2 mg/dL) 1.2 Estimated GFR (>60 ml/min) 57 L BUN/Creatinine Ratio (7 - 25 %) 18.3 Lactic Acid (0.7 - 2.1 mmol/L) 5.5 H 8.5 H Total Bilirubin (0.2 - 1.3 mg/dL) 1.6 H Direct Bilirubin (< 0.4 mg/dL) 0.9 H AST (17 - 59 U/L) 36 ALT (21 - 72 U/L) 41 Alkaline Phosphatase (< 127 U/L) 79 Ammonia (9 - 30 umol/L) < 9 L Troponin I (<0.11 ng/ml) 0.06 Total Protein (6.3 - 8.2 g/dL) 6.8 Albumin (3.5 - 5.0 g/dL) 3.6 04/29 04/29 0040 0033 Chemistry Lactic Acid (0.7 - 2.1 mmol/L) 10.5 H Urines Urinalysis LIGHT H Urine Color (YEL,AMB,STR) YEL Urine Clarity (CLEAR) HAZY H Urine pH (5.0 - 8.0) 6.0 Ur Specific [place] (1.001 - 1.035) 1.025 Urine Protein (NEG,<30 MG/DL) 100 H Urine Ketones (NEG) NEG Urine Nitrite (NEG) NEG Urine Bilirubin (NEG) NEG@ICTO Urine Urobilinogen (0.1 - 1.0 EU/dl) 2.0 H Ur Leukocyte Esterase (NEG) NEG Ur Microscopic SEDIMENT EXAMINED Urine RBC (0 - 5 /HPF) 25-50 H Urine WBC (0 - 2 /HPF) RARE Ur Epithelial Cells (NONE,FEW) FEW Urine Bacteria (NEG/NONE) RARE H Hyaline Casts (0/LPF) 1-3 H Urine Mucus (FEW,NONE) FEW Urine Hemoglobin (NEG) LARGE H Urine Glucose (N MG/DL) NEG 04/29 33 Chemistry Sodium (137 - 145 mmol/L) 146 H Potassium (3.5 - 5.1 mmol/L) 3.3 L Chloride (98 - 107 mmol/L) 102 Carbon Dioxide (22 - 30 mmol/L) 18 L Anion Gap (5 - 16) 26 H BUN (9 - 20 mg/dL) 20 Creatinine (0.7 - 1.2 mg/dL) 1.4 H Estimated GFR (>60 ml/min) 48 L BUN/Creatinine Ratio (7 - 25 %) 14.3 Glucose (65 - 99 mg/dL) 154 H Calcium (8.4 - 10.2 mg/dL) 8.9 Total Bilirubin (0.2 - 1.3 mg/dL) 2.7 H Direct Bilirubin (< 0.4 mg/dL) 1.5 H AST (17 - 59 U/L) 33 ALT (21 - 72 U/L) 33 Alkaline Phosphatase (< 127 U/L) 100 Troponin I (<0.11 ng/ml) 0.06 Total Protein (6.3 - 8.2 g/dL) 7.4 Albumin (3.5 - 5.0 g/dL) 4.0 Amylase (30 - 110 U/L) 80 Lipase (23 - 300 U/L) 45 Vitamin B12 (239 - 931 pg/mL) 365 25-OH Vitamin D Total (30 - 100 ng/ml) 12.5 L TSH (0.270 - 4.200 uIU/mL) 1.590 Hematology CBC w Diff NO MAN DIFF REQ WBC (4.8 - 10.8 /CUMM) 8.8 RBC (4.70 - 6.10 /CUMM) 5.54 Hgb (14.0 - 18.0 G/DL) 15.8 Hct (42 - 52 %) 47.7 MCV (80.0 - 94.0 FL) 86.2 MCH (27.0 - 31.0 PG) 28.4 RDW (11.5 - 14.5 %) 15.0 H Plt Count (130 - 400 /CUMM) 152 MPV (7.4 - 10.4 FL) 9.2 Gran % (42.2 - 75.2 %) 84.6 H Lymphocytes % (20.5 - 51.1 %) 7.5 L Monocytes % (1.7 - 9.3 %) 6.3 Eosinophils % (0 - 5 %) 1.5 Basophils % (0.0 - 2.0 %) 0.1 Absolute Granulocytes (1.4 - 6.5 /CUMM) 7.4 H Absolute Lymphocytes (1.2 - 3.4 /CUMM) 0.7 L Absolute Monocytes (0.10 - 0.60 /CUMM) 0.6 Absolute Eosinophils (0.0 - 0.7 /CUMM) 0.1 Absolute Basophils (0.0 - 0.2 /CUMM) 0 PUBS MCHC (33.0 - 37.0 G/DL) 33.0 A/P; 89-year-old male with past medical history significant for sick sinus syndrome, status post pacemaker, history of macular degeneration dementia who is admitted with aspiration pneumonia, hypotension and lactic acidosis. Patient was agitated this morning therefore deceived Haldol. Patient has abnormal EKG. Although his EKG there are still some T-wave changes including T-wave inversion inferiorly. Patient be transferred to telemetry. Troponins 2 negative. Please consult cardiology. Please obtain echocardiogram. Continue antibiotics. Patient failed swallow evaluation. Swallow evaluation can be repeated tomorrow. We had a lengthy discussion with patient's family. Currently is DNR/DNI but they will consider comfort care if patient continues to fail swallow evaluation. They're not willing to pursue any heroic measures and he PEG tube at this time. Patient has this rash on his skin front chest which according to [id number] is new. I would recommend getting a dermatology evaluation for that. Those mostly look like infected hair follicles. Patient had very high lactate levels on admission. It has come down. Continue IV hydration and repeat lactate level later this evening. DVT px: Heparin subcutaneous.
--- NOTE | 2017-04-29 14:35 | NUR ---
PT TRANSPORTED ON TELEMETRY BY THIS RN
[2017-04-29 15:02] VITALS: BP 152/80
--- NOTE | 2017-04-29 19:11 | NUR ---
PATIENT IS AFLUTTER ON THE MONITOR AT THIS TIME. PATIENT HAD A QUESTIONABLE RUN OF VTACH AT 1904. HEART MONITOR STRIP AND FULL DISCLOSURE SHOWN TO MD ROCK. STRIP AND DISCLOSURE WILL BE IN CHART. PT ASYMPTOMATIC AND SLEEPING AT THIS TIME. REPORT WILL BE GIVEN TO NUPUR Chappell TO CONTINUE TO MONITOR PATIENT.
--- NOTE | 2017-04-29 23:18 | Cons- Cardiology ---
General Information and HPI Consulting Request Date of Consult: 04/29/17 Requested By: CONSTANZA MEMBRENO M.D History of Present Illness: Mr. Hill is a 89 year old male with history of permanent pacemaker for AV block and dementia who presented to [facility] with mental status changes. Approximately 2 hours after dinner this patient experienced a coughing fit with suspected vomiting. He was noted to have labored breathing and EMS reported a barely palpable pulse. In addition to the above, this patient had diarrhea with incontinence, a low grade fever, anorexia, hypotension and brdycardia. Although there is evidence of dementia at this time the patient was reportedly normally functioning up until four to five months ago. The patient cannot offer a cogent history but he has no discernable chest discomfort, shortness of breath, lightheadedness of palpitations. Allergies/Medications Allergies: Coded Allergies: NO KNOWN ALLERGIES (04/29/17) Home Med List: No Known Home Medications Review of Systems Review of Systems: * A review of systems is unremarkable. Past History Travel History Traveled to [place] past 21 day No Medical History Blood Transfusion Hx: No Neurological: dementia EENT: macular degeneration Cardiovascular: sick sinus syndrome HX OF PACEMAKER? Respiratory: NONE Gastrointestinal: NONE Hepatic: NONE Renal: NONE Musculoskeletal: right index finger injury Psychiatric: NONE Endocrine: NONE Blood Disorders: NONE Cancer(s): NONE FUNERAL PREARRANGEMENT COUNSELOR/Reproductive: NONE Surgical History Surgical History: 1 Psychosocial History Where Do You Live? Home Who Do You Live With? self Services at Home: Home Health Aide Primary Language: Faroese Smoking Status: Former Smoker Functional Ability ADLs Independent: eating. Needs Assist: dressing, toileting, bathing. Ambulation: walker IADLs Needs Assist: shopping, housework, finances, food prep, telephone, transportation, medication admin. Employment History Employment: Retired Profession/Employer [employer] Exam & Diagnostic Data Vital Signs and I&O Vital Signs Date Time Temp Pulse Resp B/P B/P Pulse O2 O2 Flow FiO2 Mean Ox Delivery Rate 04/29 2153 98.4 04/29 1946 99.5 04/29 1832 95 Room Air 04/29 1829 Room Air 04/29 1757 100.1 04/29 1736 100.1 04/29 1502 98.1 63 20 152/80 94 Room Air 04/29 1357 98.9 63 20 150/76 96 Room Air 04/29 1245 99.6 72 22 156/74 99 Room Air 04/29 1103 99.2 72 20 154/72 99 Room Air 04/29 0931 98.2 81 18 128/88 99 Nasal Cannula 04/29 0819 98.2 81 18 128/88 99 Nasal 3.0L Cannula 04/29 0646 100 Nasal 2.0L Cannula 04/29 0616 98.0 70 20 127/89 100 Nasal 2.0L Cannula 04/29 0432 97.4 76 20 110/80 100 Nasal 2.0L Cannula 04/29 0151 67 20 125/88 100 Nasal 2.0L Cannula 04/29 0055 96 Nasal 2.0L Cannula 04/29 0038 68 16 120/82 97 Room Air 04/29 0005 97.5 64 20 94/53 97 Room Air Intake & Output 04/29 1600 04/29 0800 15 0000 / 1600 04/28 0800 04/28 0000 Intake Total 250 1000 Output Total 700 100 Balance -450 900 Intake, IV 250 1000 Output, Urine 700 100 Patient 182 lb 182 lb Weight Weight Estimated Reported by Patient Measurement Method Physical Exam: General: WD/WN male in NAD; awake and responsive with confusion HEENT: NC/AT, PERRL, EOMI Neck: no JVD, no carotid bruit Heart: RRR with ectopy Lungs: clear bilaterally ABdomen: soft, NT, +ve bowel sounds Extremities: no edema Assessment/Plan Assessment/Plan * This patient has a pacemaker which is suspected to have been placed quite a while ago with unclear follow up. We will interogate this device to assess for any dysrhythmias. I would have concern about a developing aspiration pneumonia considering his reported vomiting and dementia. There is no evidence of myocardial ischemia or decompensated CHF at this time. Consult Acknowledgment - Thank you for your consult request.
--- NOTE | 2017-04-30 00:17 | NUR ---
PT HAD 7 RUN BEAT OF VT AROUND 2029 ON 04/29/17. RACHEL ROMERO INFORMED.
[2017-04-30 00:22] VITALS: BP 157/80
[2017-04-30 08:00] LABS: ABSOLUTE BASOPHIL COUNT 0 /CUMM (0.0-0.2); ABSOLUTE EOSINOPHIL COUNT 0.1 /CUMM (0.0-0.7); ABSOLUTE LYMPH COUNT 0.5 /CUMM (1.2-3.4); ABSOLUTE MONOCYTE COUNT 0.4 /CUMM (0.10-0.60); BASOPHIL % 0.3 % (0.0-2.0); EOSINOPHIL % 1.9 % (0-5); HEMATOCRIT 45.2 % (42-52); MEAN CORPUSCULAR HGB 28.4 PG (27.0-31.0); MEAN CORPUSCULAR HGB CONC 32.8 G/DL (33.0-37.0); MEAN CORPUSCULAR VOLUME 86.8 FL (80.0-94.0); MEAN PLATELET VOLUME 9.2 FL (7.4-10.4); PLATELET COUNT 143 /CUMM (130-400); RBC DISTRIBUTION WIDTH 14.9 % (11.5-14.5); RED BLOOD CELL CT 5.21 /CUMM (4.70-6.10); WHITE BLOOD CELL COUNT 7.2 /CUMM (4.8-10.8)
[2017-04-30 08:24] VITALS: BP 182/92
[2017-04-30 09:06] LABS: GRANULOCYTE % 84.3 % (42.2-75.2)
[2017-04-30 12:00] VITALS: BP 240/140
--- NOTE | 2017-04-30 12:05 | PN- Att Addend ---
Attending Addendum Attending Brief Note Patient seen and examined. Case discussed with son and [id number]. Awake, confused. Moving all extremities spontaneously but not following commands. He feels swallowing evaluation yesterday as he was unable to initiate swallowing. He had a low-grade fever yesterday evening of 100.1. According to the family patient has dementia baseline. Requires assistance with a walker to ambulate. Requires some assistance with his meals but is able to tolerate it. There is no report of choking at baseline. Symptoms began suddenly prior to admission. It appears he may have aspirated. He has minimal right basilar haziness and possible trace effusions after long discussion with the family, and the and adamant about conservative management for the father only. They reported that his wishes are to spend [place]. They do not want any aggressive treatment. No want any alternative means of feeding. Request is for patient to be placed on hospice care. They're familiar with this following the recent of another family member. Gen. appearance: Frail, confused, moving all extremities spontaneously. Heart: S1-S2 regular Lungs: Fair air entry bilaterally with no added sounds. Abdomen: Soft, nontender with normal bowel sounds Extremities: No pedal edema Laboratory Tests 04/30/17 0830: CBC w Diff Cancelled, WBC Cancelled, RBC Cancelled, Hgb Cancelled, Hct Cancelled , MCV Cancelled, MCH Cancelled, RDW Cancelled, Plt Count Cancelled, MPV Cancelled, PUBS MCHC Cancelled 04/30/17 0615: Anion Gap 16, Estimated GFR > 60, BUN/Creatinine Ratio 21.3, Magnesium 1.9, CBC w Diff NO MAN DIFF REQ, RBC 5.21, MCV 86.8, MCH 28.4, RDW 14.9 H, MPV 9.2, Gran % 84.3 H, Lymphocytes % 7.3 L, Monocytes % 6.2, Eosinophils % 1.9, Basophils % 0.3, Absolute Granulocytes 6.0, Absolute Lymphocytes 0.5 L, Absolute Monocytes 0.4, Absolute Eosinophils 0.1, Absolute Basophils 0, PUBS MCHC 32.8 L 04/29/17 1828: Lactic Acid 2.1 Problems: 1. Altered mental status; secondary to acute delirium superimposed on baseline dementia. 2. Aspiration pneumonia versus pneumonitis. 3. Abnormal EKG 4. Dysphagia Plan: -He has no electrolyte abnormality or obvious significant infectious process to account for his current mental state. -Obtain head CT to rule out any acute intracranial process contributing to his current mental state. -Family to meet CT hospice service later on today. We'll proceed with hospice care after the evaluation if no easily reversible process is noted in the head CT. -Family wishes for patient to go on home hospice.
[2017-04-30 12:30] VITALS: BP 230/120
[2017-04-30 13:46] VITALS: BP 172/82
--- NOTE | 2017-04-30 14:20 | PN- Housestaff ---
Subjective Follow-up For: Aspiration pneumonia Altered mental status Dysphagia Complaints: no complaints Subjective: Patient is alert but not oriented to time person and place. Patient was agitated overnight and received IM Haldol. Patient remained afebrile. Review of Systems Constitutional: Denies: chills, fever. EENTM: Denies: visual changes. Cardiovascular: Denies: chest pain, palpitations. Respiratory: Denies: cough, short of breath. Gastrointestinal: Denies: abdominal pain, nausea, changes in stool. Genitourinary: Denies: dysuria. Musculoskeletal: Denies: back pain. Objective Last 24 Hrs of Vital Signs/I&O Vital Signs Date Time Temp Pulse Resp B/P B/P Pulse O2 O2 Flow FiO2 Mean Ox Delivery Rate 04/30 1346 71 172/82 04/30 1251 98.3 75 230/120 04/30 1230 230/120 04/30 1200 75 240/140 04/30 0824 98.3 90 20 182/92 93 Room Air 04/30 0022 98.9 60 20 157/80 96 04/30 0000 Room Air 04/29 2153 98.4 04/29 1946 99.5 04/29 1832 95 Room Air 04/29 1829 Room Air 04/29 1757 100.1 04/29 1736 100.1 Intake & Output 04/30 1600 04/30 0800 04/30 0000 Intake Total 710 Output Total 750 700 Balance -40 -700 Intake, IV 710 Output, Urine 750 700 Physical Exam General Appearance: Alert, Cooperative HEENT: Atraumatic Cardiovascular: Regular Rate, Normal S1, Normal S2 Lungs: Clear to Auscultation Neurological: Normal Tone Extremities: No Edema Current Medications: Current Medications Sig/Jamee Start time Last Medication Dose Route Stop Time Status Admin Acetaminophen 1,000 MG ONCE ONE 04/29 1745 DC 04/29 N/A 1 UNIT IV 04/29 1759 1757 Ampicillin Sodium/ 1,500 MG Q6H 04/30 0100 AC 04/30 Sulbactam Sodium IV 1258 Sodium Chloride 100 ML Ampicillin Sodium/ 1,500 MG Q6H 04/29 1000 DC 04/29 Sulbactam Sodium IV 2150 Sodium Chloride 100 ML Atropine Sulfate 1 GTT SEE ADMIN CRITERIA 04/30 1500 UNVr OPH Atropine Sulfate 0.5 MG ONCE PRN 04/30 0015 DC IV Haloperidol 0.5 MG ONCE ONE 04/30 1330 DC 04/30 IM 04/30 1331 1317 Haloperidol 5 MG .STK-MED ONE 04/30 0430 DC IM 04/30 0431 Haloperidol 0.5 MG Q12P PRN 04/29 0445 AC 04/30 IM 0431 Heparin Sodium 5,000 UNIT Q8 04/29 0600 AC 04/30 (Porcine) SC 0614 Hydralazine HCl 10 MG ONCE ONE 04/30 1245 DC 04/30 IV 04/30 1246 1251 Lorazepam 0.5 MG Q1P PRN 04/30 1500 AC IV Morphine Sulfate 2 MG Q4P PRN 04/30 1500 AC IV Potassium Chloride 10 MEQ ONCE ONE 04/30 0945 DC 04/30 IV 04/30 0946 1017 Scopolamine HBr 1 PAT Q72H 04/30 1500 AC TOP Sodium Chloride 1,000 ML Q13H 04/29 0345 DC 04/30 IV 0859 Last 24 Hrs of Lab/Rayshawn Results Last 24 Hrs of Labs/Mics: Laboratory Tests 04/30/17 0830: CBC w Diff Cancelled, WBC Cancelled, RBC Cancelled, Hgb Cancelled, Hct Cancelled , MCV Cancelled, MCH Cancelled, RDW Cancelled, Plt Count Cancelled, MPV Cancelled, PUBS MCHC Cancelled 04/30/17 0615: Anion Gap 16, Estimated GFR > 60, BUN/Creatinine Ratio 21.3, Magnesium 1.9, CBC w Diff NO MAN DIFF REQ, RBC 5.21, MCV 86.8, MCH 28.4, RDW 14.9 H, MPV 9.2, Gran % 84.3 H, Lymphocytes % 7.3 L, Monocytes % 6.2, Eosinophils % 1.9, Basophils % 0.3, Absolute Granulocytes 6.0, Absolute Lymphocytes 0.5 L, Absolute Monocytes 0.4, Absolute Eosinophils 0.1, Absolute Basophils 0, PUBS MCHC 32.8 L 04/29/17 1828: Lactic Acid 2.1 Assessment/Plan Assessment: 89-year-old male with past medical history significant for cardiac arrhythmias status post pacemaker, dementia admitted for altered mental status and respiratory distress. Patient was admitted for the management of following problems Nonspecific EKG changes/pacemaker interrogation ACS is ruled out with 2 sets of troponins. Cardiology consult was obtained Multiple premature ventricle complexes noticed on telemetry monitoring Patient was scheduled to have pacemaker interrogation but family decided to make patient comfort measures and home hospice evaluation was done. Aspiration pneumonitis Most likely related to dysphagia. Patient did have some low-grade temperature spikes but there is no white count and x-ray does not show any convincing evidence of aspiration pneumonia. Patient was empirically treated for aspiration pneumonia. Patient failed 2 swallow evaluations. Goals of care discussion We had extensive discussion with family members including son, daughter and [id number] about patient's current medical condition and prognosis. Son is his conservator. Medical team was initially leaning towards getting the CAT scan of the head to find out the organic cause of change in mental status and dysphagia however family decided to go with comfort measures and wanted hospice evaluation. Patient also failed 2 swallow evaluations. Hospice nurse was consulted and spoke with the family. Patient was made comfort measures in the hospital and will be discharged on home hospice services. Patient is comfort measures only Patient is nothing by mouth Patient is on pain management Problem List: 1. Altered mental status 2. Aspiration pneumonia 3. Pacemaker Pain Ratin Pain Location: NA Pain Goal: Pain 4 or less Pain Plan: IV morphine Tomorrow's Labs & Rationales: Not NEEDED as patient is comfort years Not NEEDED as patient is comfort years
--- NOTE | 2017-04-30 17:20 | Patient Discharge Instructions ---
Discharge Instructions General Discharge Information You were seen/treated for: 1. Aspiration pneumonia 2. Altered mental status 3. Dysphagia Special Instructions: 1. Patient was made comfort care only during the hospital admission and home hospice evaluation was done. 2. Patient will be discharged with home hospice service Diet Continue normal diet: No Recommended Diet: NPO Activity Full Activity/No Limits: No Activity Self Limited: Yes Acute Coronary Syndrome Inclusion Criteria At DC or during hospital stay patient has or had the following: ACS DIAGNOSIS No Discharge Core Measures Meds if any: Prescribed or Continued at Discharge Meds if any: NOT Prescribed or Continued at Discharge Congestive Heart Failure Inclusion Criteria At DC or during hospital stay patient has or had the following: CHF DIAGNOSIS No Discharge Core Measures Meds if any: Prescribed or Continued at Discharge Meds if any: NOT Prescribed or Continued at Discharge Cerebrovascular accident Inclusion Criteria At DC or during hospital stay patient has or had the following: CVA/TIA Diagnosis No Discharge Core Measures Meds if any: Prescribed or Continued at Discharge Meds if any: NOT Prescribed or Continued at Discharge Venous thromboembolism Inclusion Criteria VTE Diagnosis No VTE Type NONE VTE Confirmed by (Test) NONE Discharge Core Measures - Per Current guidelines, there needs to be overlap - treatment for the first 5 days of Warfarin therapy. - If discharged on Warfarin prior to 5 days of - overlap therapy, the patient will need to be - assessed for post discharge needs including - *Post discharge parental anticoagulation - *Warfarin and/or parental anticoagulation education - *Follow up date to check INR post discharge At least 5 days overlap therapy as Inpatient No Meds if any: Prescribed or Continued at Discharge Note: Overlap Therapy is Warfarin and Anticoagulant Meds if any: NOT Prescribed or Continued at Discharge
[2017-04-30] MEDS ORDERED: MORPHINE S10 MG/1 M1 IV (17:24)
[2017-04-30] MEDS ORDERED: TRANSDERM-SCOP1 EACH TOP (17:24)
[2017-04-30] MEDS ORDERED: ATROPINE SULFATE2 ML SL (17:24)
[2017-04-30] MEDS ORDERED: LORAZEPAM2 MG/1 M1 IV (17:24)
--- NOTE | 2017-04-30 17:25 | Discharge Summary ---
Visit Information Visit Dates Admission Date: 04/29/17 Discharge Date: 05/01/17 Hospital Course Course Attending Physician: CONSTANZA MEMBRENO M.D Primary Care Physician: MICHAEL CAMARGO MD Hospital Course: 89-year-old male with past medical history significant for cardiac arrhythmias status post pacemaker, dementia, progressive decline over few months admitted for altered mental status and respiratory distress. Vitals on admission, Afebrile, pulse in 60s, RR 20, blood pressure improved to 120/82, saturating well on 2 L nasal cannula. Physical examination on admission Not oriented, agitated, trying to get off the bed, trying to pull the Valdivia catheter, not cooperative, no acute distress, neck supple, JVD normal, mucosa dry, moving all extremities, with complete neurological examination could not be done because of patient's clinical condition, cranial nerves apparently intact, no dependent edema, no obvious skin rashes or inflammation S1 and S2 audible, regular rhythm, lung examination showed coarse breathing sounds right worse than left, benign abdominal examination. Labs on admission showed CBC unremarkable, potassium 3.3, bicarbonate 18, anion gap 26, BUN 20, creatinine 1.4, lactate 10.5, total bilirubin 2.7, direct bilirubin 1.5, AST 33, ALT 33, alkaline phosphatase 100, troponin 0.06. UA positive for protein, urobilinogen, RBC 50, rare bacteria CXR: Minimal right basilar haziness and possible trace effusion. No overt edema. Enlarged cardiac silhouette. EKG showed Paced rhythm. Patient was admitted for the management of following problems Nonspecific EKG changes/pacemaker interrogation ACS is ruled out with 2 sets of troponins.Cardiology consult was obtained. Multiple premature ventricle complexes noticed on telemetry monitoring. Patient was scheduled to have pacemaker interrogation but family decided to make patient comfort measures and home hospice evaluation was done. Aspiration pneumonitis Most likely related to dysphagia. Patient did have some low-grade temperature spikes but there was no white count and x-ray does not show any convincing evidence of aspiration pneumonia. Patient was empirically treated for aspiration pneumonia for 2 days and antibiotics were stopped. Patient failed 2 swallow evaluations. Goals of care discussion/home hospice We had extensive discussion with family members including son, daughter and [id number] about patient's current medical condition and prognosis. Son is his conservator. Medical team was initially leaning towards getting the CAT scan of the head to find out the organic cause of change in mental status and dysphagia however family decided to go with comfort measures and wanted hospice evaluation. Patient also failed 2 swallow evaluations. Hospice nurse was consulted and spoke with the family. Patient was made comfort measures in the hospital and will be discharged on home hospice services. Patient was made comfort measures only Patient was nothing by mouth Patient was on pain management Allergies: Coded Allergies: NO KNOWN ALLERGIES (04/29/17) Disposition Summary Disposition Principal Diagnosis: Aspiration pneumonia Altered mental status Dysphagia Additional Diagnosis: History of dementia History of cardiac arrhythmias status post pacemaker Discharge Disposition: hospice - home Discharge Instructions General Discharge Information Code Status: Comfort Care Only Patient's Diet: Nothing by mouth Patient's Activity: As tolerated Follow-Up Instructions/Appts: Follow-up with home hospice services after discharge Copies To: CONSTANZA MEMBRENO M.D SEVERE) Qty = 60 No Refills Lorazepam (Lorazepam) 2 MG/ML VIAL 0.5 Milligram INTRAVEN EVERY HR NEEDED as needed for AGITATION Qty = 60 No Refills Atropine Sulfate (Atropine Sulfate) 1 % DROPS 1 Drop SUBLINGUAL EVERY 4 HOURS NEEDED as needed for SECRETIONS Qty = 1 No Refills Scopolamine Hydrobromide (Transderm-Scop) 1.5MG/3DAY PATCH.TD.3 1 Patch On the skin Q72H Qty = 60 No Refills Copies To: CONSTANZA MEMBRENO M.D
--- NOTE | 2017-04-30 20:21 | PN- Cardiology ---
Subjective Subjective: * No verbalized complaints. * Pacemaker interogation showed very high rate atrial events suggestive of atrial fibrillation with RVR * Potassium is 3.2 Objective Vital Signs and I&Os Vital Signs Date Time Temp Pulse Resp B/P B/P Pulse O2 O2 Flow FiO2 Mean Ox Delivery Rate 04/30 1646 98.5 04/30 1346 71 172/82 04/30 1251 98.3 75 230/120 04/30 1230 230/120 04/30 1200 75 240/140 04/30 0824 98.3 90 20 182/92 93 Room Air 04/30 0022 98.9 60 20 157/80 96 04/30 0000 Room Air 04/29 2153 98.4 Intake & Output 04/30 1600 04/30 0800 04/30 0000 04/29 1600 04/29 0800 04/29 0000 Intake Total 450 604 268 6692 Output Total 2200 750 700 700 100 Balance -1750 -40 -700 -450 900 Intake, IV 450 171 563 6405 Intake, Oral 0 Number 2 Bowel Movements Output, Urine 2200 750 700 700 100 Patient 182 lb 182 lb Weight Weight Estimated Reported by Patient Measurement Method Physical Exam: General: WD/WN male in NAD; awake and responsive with confusion Neck: no JVD, no carotid bruit Heart: RRR with ectopy Lungs: clear bilaterally Extremities: no edema Assessment/Plan Assessment/Plan * This patient likely had hypotension with weak pulse related to atrial fibrillation with rapid ventricular rate. He is also hypertensive now. Would begin Cardizem at 60mg PO BID. * replete potassium Continue telemetry? No
[2017-04-30 23:19] VITALS: BP 152/62
--- NOTE | 2017-04-30 23:36 | ECHOCARDIOGRAM REPORT ---
MARIO CAMACHO Age: 89 : 1925 Gender: M Exam Date: 04/30/2017 11:24 Exam Location: [address] [facility] Ht (in): 72 Wt (lb): 182 BSA: 2.05 BP: 152 / 80 Ordering Physician: PEMA DOUGLASS MD Referring Physician: PEMA DOUGLASS MD Technologist: Rich Dalton [facility] Room Number: 189-1 Indications: STRUCTURAL HEART DISEASE Rhythm: Atrial fibrillation Technical Quality: fair FINDINGS Left Ventricle Normal left ventricular size with mild left ventricular hypertrophy. Moderately decreased systolic function with no obvious regional wall motion abnormalities. The ejection fraction is visually estimated at 30%. Right Ventricle The right ventricle is mildly enlarged with normal function. A pacemaker lead is noted in the right cardiac chambers. Right Atrium The right atrium is moderately enlarged. Left Atrium The left atrium is severely enlarged. The interatrial septum is intact. Mitral Valve The mitral valve is normal in structure and function. There is mild mitral regurgitation. Aortic Valve Structurally normal aortic valve without significant sclerosis or stenosis. There is trace aortic regurgitation. Tricuspid Valve The tricuspid valve is normal in structure and function. There is trace tricuspid regurgitation. Pulmonary artery systolic pressure is moderately elevated to 61mmHg. Pulmonic Valve Structurally normal pulmonic valve. There is mild pulmonic regurgitation. Pericardium Normal pericardium without effusion. No pleural effusion. Great Vessels Normal aortic root dimension. The aortic arch and great vessels are well seen and are normal. CONCLUSIONS 1. Moderately decreased EF of 30%. 2. Mild right ventricular enlargment. 3. A pacemaker lead is noted in the right cardiac chambers. 4. Moderate right atrial and severe left atrial enlargement. 5. Mild mitral regurgitation. 6. Trace tricuspid regurgitation. 7. Trace aortic regurgitation. 8. Mild pulmonic regurgitation. 9. Moderate pulmonary hypertension. Enrique Lilly M.D. (Electronically Signed) Final Date: 30 April 2017 23:36 MEASUREMENTS (Male / Female) Normal Values 2D ECHO LV Diastolic Diameter PLAX 5.9 cm 4.2 - 5.9 / 3.9 - 5.3 cm LV Systolic Diameter PLAX 4.6 cm 2.1 - 4.0 cm LV Fractional Shortening PLAX 22.0 % 25 - 46 % LV Ejection Fraction 2D Teich 43.8 % IVS Diastolic Thickness 1.3 cm LVPW Diastolic Thickness 1.2 cm LV Relative Wall Thickness 0.4 RV Internal Dim ED PLAX 3.8 cm 1.9 - 3.8 cm LVOT Diameter 2.0 cm Aortic Root Diameter 3.1 cm LA Systolic Diameter LX 5.1 cm 3.0 - 4.0 / 2.7 - 3.8 cm LA Volume 141.0 cm 18 - 58 / 22 - 52 cm Ascending Aorta Diameter 3.7 cm DOPPLER AV Peak Velocity 130.0 cm/s AV Peak Gradient 6.8 mmHg AV Mean Velocity 80.9 cm/s AV Mean Gradient 3.0 mmHg AV Velocity Time Integral 21.7 cm LVOT Peak Velocity 58.7 cm/s LVOT Peak Gradient 1.4 mmHg LVOT Mean Velocity 33.9 cm/s LVOT Mean Gradient 1.0 mmHg LVOT Velocity Time Integral 9.6 cm LVOT Stroke Volume 30.2 cm AV Area Cont Eq vti 1.4 cm AV Area Cont Eq pk 1.4 cm MV Peak Velocity 77.2 cm/s MV Peak Gradient 2.4 mmHg MV Mean Velocity 43.1 cm/s MV Mean Gradient 1.0 mmHg Mitral E Point Velocity 59.2 cm/s Mitral A Point Velocity 42.9 cm/s Mitral E to A Ratio 1.4 MV PHT Velocity 80.1 cm/s MV Deceleration [place] 314.0 cm/s MV Pressure Half Time 76.5 ms MV Area PHT 2.9 cm MV Deceleration Time 243.0 ms TR Peak Velocity 361.0 cm/s TR Peak Gradient 52.1 mmHg Right Atrial Pressure 10.0 mmHg Pulmonary Artery Systolic Pressu 62.1 mmHg Right Ventricular Systolic Press 62.1 mmHg PV Peak Velocity 85.5 cm/s PV Peak Gradient 2.9 mmHg PV Mean Velocity 54.1 cm/s PV Mean Gradient 1.0 mmHg PV Velocity Time Integral 15.6 cm LV E' Lateral Velocity 10.4 cm/s Mitral E to LV E' Lateral Ratio 5.7 LV E' Septal Velocity 5.9 cm/s Mitral E to LV E' Septal Ratio 10.1
--- NOTE | 2017-05-01 00:18 | NUR ---
PATIENT ARRIVED ON FLOOR TO ROOM 235-2 AT 2310. PATIENT SLEEPING. ALPS INPLACE. REPORT GIVEN TO ONCOMING NURSE. VITALS DONE BY OFF MST. CALL LIGHT WITHIN REACH. WILL CONTINUE TO MONITOR.
--- NOTE | 2017-05-01 06:37 | NUR ---
LATE ENTRY PT BECAME AGITATED AND BEGAN PULLING AT [place]. RR ELEVATED. MEDICATED W/ ATIVAN AND MORPHINE ORDERED. WILL CONTINUE TO MONITOR.
--- NOTE | 2017-05-01 11:44 | PN- Att Addend ---
Attending Addendum Attending Brief Note Patient seen and examined. His daughter in law was present at the bedside. He was obtunded. Not in any respiratory rate or obvious painful distress. Yesterday the CAT scan was held due to markedly elevated blood pressure that improved after administration of hydralazine. Family met with the hospice service and agreed for patient to be discharged on home hospice. Family then refused to proceed with a CT scan as it would not impact his care going forward. Vital Signs Date Time Temp Pulse Resp B/P B/P Pulse O2 O2 Flow FiO2 Mean Ox Delivery Rate 05/01 1123 96 Room Air Room Air 04/30 2319 98.3 50 18 152/62 92 Room Air 04/30 1646 98.5 04/30 1346 71 172/82 04/30 1251 98.3 75 230/120 04/30 1230 230/120 04/30 1200 75 240/140 Gen. appearance: Frail, obtunded. HEENT: Anicteric, no pallor Heart: S1-S2 regular Lungs: Clear bilaterally Abdomen: Soft, nontender with normal bowel sounds Extremities: No pedal edema Problems: 1. Altered mental status; likely metabolic encephalopathy superimposed on underlying dementia 2. Aspiration pneumonitis; query underlying pneumonia 3. Abnormal EKG; negative cardiac enzymes Plan: -After extensive conversation with the patient's daughter in law and son yesterday the decision was to proceed with comfort measures only for the father. Due to his advanced age, underlying dementia and steady decline of mental and functional status, he requested for him to be discharged home in accordance with his previously stated wishes. They stated that he wants to be at home with his parents. They do not wish to pursue any further imaging, testing or treatment. -Patient was seen by the hospice service and deemed appropriate for home hospice care. He will be discharged home today in the company of his family. All medications have been discontinued. The hospice service will institute medications as needed for symptom control.
== END 2017-05-01 12:51 | disposition home or self-care (01) | DRG 177 ==
LOC: ERH 23:55 → ERHI 04-29 01:49 → 1NO 04-29 01:49 → CANRESERV 04-29 09:07 → ENRESERV 04-29 09:07 → EDBEDREQ 04-29 09:34 → ENRESERV 04-29 12:08 → ENTRNSPT 04-29 13:26 → ERHI 04-29 14:20 → EDTRNSPT 04-29 14:28 → EDTRNSPTSTS 04-29 14:28 → 1NO 04-29 14:35 → CMPTRNSPT 04-29 14:42 → 1NO 04-29 14:50 → 2NA 04-30 23:14 → ENPENDDIS 05-01 12:22 → 2NA 05-01 12:51
PROVIDERS: Pediatrics; Student in an Organized Health Care Education/Training Program; ADMIT Internal Medicine
DX: J69.0 Pneumonitis due to inhalation of food and vomit (principal); G93.41 Metabolic encephalopathy; E87.2 Acidosis; F05 Delirium due to known physiological condition; R13.10 Dysphagia, unspecified; Z51.5 Encounter for palliative care; E87.6 Hypokalemia; Z95.0 Presence of cardiac pacemaker
CPT/HCPCS: 1NSP; 2NASP; 36415; 81001; 82436; 87040; 87086; 93005; 93010; 93306; J0131; J0360; J0696; J1630; J1644